=== PATIENT | male | born 1970 | race Caucasian/White ===

== ENCOUNTER → 2022-11-05 14:55 | Outpatient (CLI) | payer OTHER, SELFPAY ==
--- NOTE | 2022-11-05 15:26 | DI.RAD.S_ITS ---
PROCEDURE: XR KUB INDICATIONS: hx kidney stone--constipation, intermittent LUQ pain x5 days TECHNIQUE: One view of the abdomen acquired. COMPARISON: None. FINDINGS: Surgical changes and devices: None. Bowel: Bowel gas pattern is normal. Soft tissues: A 10 mm stone projects to the region of the renal pelvis of the left kidney. Visualized solid organ contours appear normal in size. Bones: No suspicious bony lesions. IMPRESSION: 10 mm stone projects to the region of the renal pelvis of the left kidney. Dictated by: Hai Duncan M.D. on 11/05/2022 at 15:52 Approved by: Hai Duncan M.D. on 11/05/2022 at 15:53
== END ==
PROVIDERS: Referring Provider Student in an Organized Health Care Education/Training Program; Visit Provider Student in an Organized Health Care Education/Training Program
DX: R10.9 Unspecified abdominal pain (principal); R10.12 Left upper quadrant pain; N20.0 Calculus of kidney
CPT/HCPCS: 74018; 87086